=== PATIENT | female | born 1960 | race Caucasian/White ===

== ENCOUNTER → 2023-09-18 14:16 | Outpatient (REF) | payer BC, SELFPAY | LOC: RAD 14:16 | PROVIDERS: ATTENDING PHYSICIAN Family Medicine | DX: R10.12 Left upper quadrant pain (principal) | CPT/HCPCS: 71101; 76700 ==

== ENCOUNTER → 2023-10-06 10:38 | Outpatient (REF) | payer BC, SELFPAY | LOC: WDC 10:38 | PROVIDERS: ATTENDING PHYSICIAN Family Medicine | DX: Z12.31 Encounter for screening mammogram for malignant neoplasm of breast (principal) | CPT/HCPCS: 77063; 77067 ==

== ENCOUNTER → 2023-12-15 10:17 | Outpatient (REF) | payer BC, SELFPAY ==
[2023-12-15 11:18] LABS: % Basophils 0.7 % (0-2); % Eosinophils 0.7 % (0-6); % Immature Granulocytes 0.5 % (0-0.5); % Lymphocytes 22.3 % (20.5-51.1); % Monocytes 6.7 % (1.7-9.3); % Neutrophils 69.1 % (42.2-75.2); Absolute Basophils 0.1 10^3/uL (0-0.2); Absolute Eosinophils 0.1 10^3/uL (0-0.7); Absolute Lymphocytes 1.8 10^3/uL (1.2-3.4); Absolute Monocytes 0.5 10^3/uL (0.1-0.6); Absolute Neutrophils 5.6 10^3/uL (1.4-6.5); Hematocrit 39.4 % (37.0-47.0); Hemoglobin 13.8 g/dL (12.0-16.0); Mean Corpuscular Hgb 31.2 pg (27.0-31.0); Mean Corpuscular Volume 89.1 fL (81.0-99.0); Mean Platelet Volume 9.5 fL (7.4-10.4); Nucleated Red Blood Cells % 0 %; Platelet Count 284 10^3/uL (130-400); Red Blood Cell Count 4.42 10^6/uL (4.20-5.40); Red Cell Dist. Width 11.9 % (11.5-14.5)
[2023-12-15 11:55] LABS: ALT (SGPT) 19 U/L (0-35); AST (SGOT) 27 U/L (14-36); Albumin 4.7 g/dl (3.5-5.0); Alkaline Phosphatase 60 U/L (38-126); Blood Urea Nitrogen 14 mg/dl (7-17); Calcium 9.5 mg/dl (8.4-10.2); Carbon Dioxide 28 mmol/L (22-30); Chloride 101 mmol/L (98-107); Glucose 94 mg/dl (70-99); HDL Cholesterol 72 mg/dl; LDL Cholesterol, Calculated 85 mg/dl; Potassium 4.5 mmol/L (3.5-5.1); Sodium 136 mmol/L (135-145); Total Bilirubin 0.8 mg/dl (0.2-1.3); Total Cholesterol 176 mg/dl (50-199); Total Protein 6.7 g/dl (6.3-8.2); Triglyceride 97 mg/dl (10-149); Very Low Density Lipoprotein 19 mg/dl (0-30); eGFR > 60.00
[2023-12-15 12:11] LABS: Free T4 1.06 ng/dl (0.78-2.19)
[2023-12-15 12:25] LABS: TSH 3.41 uIU/ml (0.47-4.68)
== END ==
LOC: REG 10:17
PROVIDERS: ATTENDING PHYSICIAN Family Medicine
DX: Z00.00 Encounter for general adult medical examination without abnormal findings (principal); E03.9 Hypothyroidism, unspecified
CPT/HCPCS: 36415; 80053; 80061; 84439; 84443; 85025

== ENCOUNTER → 2024-02-09 16:35 | Outpatient (REF) | payer BC, SELFPAY | LOC: RAD 16:35 | PROVIDERS: ATTENDING PHYSICIAN Internal Medicine Rheumatology; FAMILY PHYSICIAN Family Medicine | DX: M47.812 Spondylosis without myelopathy or radiculopathy, cervical region (principal) | CPT/HCPCS: 72040 ==

== ENCOUNTER 2024-02-29 12:17 | Outpatient (RCR) | payer BC, SELFPAY | END 2024-02-29 23:59 | disposition home or self-care (01) | LOC: RPT 12:17 | PROVIDERS: ATTENDING PHYSICIAN Internal Medicine Rheumatology; FAMILY PHYSICIAN Family Medicine | DX: M25.552 Pain in left hip (principal); Z73.6 Limitation of activities due to disability; R26.2 Difficulty in walking, not elsewhere classified; M62.81 Muscle weakness (generalized); M79.605 Pain in left leg; M54.50 Low back pain, unspecified; R26.89 Other abnormalities of gait and mobility | CPT/HCPCS: 97110; 97162 ==

== ENCOUNTER 2024-03-30 13:02 | Outpatient (RCR) | payer BC, SELFPAY | END 2024-03-30 23:59 | disposition home or self-care (01) | LOC: RPT 13:02 | PROVIDERS: ATTENDING PHYSICIAN Internal Medicine Rheumatology; FAMILY PHYSICIAN Family Medicine | DX: M25.552 Pain in left hip (principal); Z73.6 Limitation of activities due to disability | CPT/HCPCS: 97110; 97112 ==

== ENCOUNTER 2024-04-11 13:12 | Outpatient (RCR) | payer BC, SELFPAY | END 2024-04-11 23:59 | disposition home or self-care (01) | LOC: RPT 13:12 | PROVIDERS: ATTENDING PHYSICIAN Internal Medicine Rheumatology; FAMILY PHYSICIAN Family Medicine | DX: M25.552 Pain in left hip (principal); Z73.6 Limitation of activities due to disability; R26.2 Difficulty in walking, not elsewhere classified; M62.81 Muscle weakness (generalized); M79.605 Pain in left leg | CPT/HCPCS: 97010; 97110 ==

== ENCOUNTER → 2024-05-31 08:51 | Outpatient (REF) | payer BC, SELFPAY ==
[2024-05-31 09:51] LABS: % Basophils 0.6 % (0-2); % Eosinophils 0.5 % (0-6); % Lymphocytes 24.2 % (20.5-51.1); % Monocytes 7.3 % (1.7-9.3); % Neutrophils 66.4 % (42.2-75.2); Absolute Basophils 0.1 10^3/uL (0-0.2); Absolute Eosinophils 0.1 10^3/uL (0-0.7); Absolute Immature Granulocytes 0.1 10^3/uL (0-0.05); Absolute Lymphocytes 2.5 10^3/uL (1.2-3.4); Absolute Monocytes 0.8 10^3/uL (0.1-0.6); Absolute Neutrophils 6.8 10^3/uL (1.4-6.5); Hematocrit 39.2 % (37.0-47.0); Hemoglobin 13.3 g/dL (12.0-16.0); Mean Corp Hgb Conc. 33.9 g/dL (33.0-37.0); Mean Corpuscular Hgb 31.9 pg (27.0-31.0); Mean Platelet Volume 9.7 fL (7.4-10.4); Nucleated Red Blood Cells % 0 %; Platelet Count 276 10^3/uL (130-400); Red Blood Cell Count 4.17 10^6/uL (4.20-5.40); Red Cell Dist. Width 12.7 % (11.5-14.5); White Blood Cell Count 10.3 10^3/uL (4.8-10.8)
[2024-05-31 10:31] LABS: ALT (SGPT) 17 U/L (0-35); AST (SGOT) 20 U/L (14-36); Albumin 4.5 g/dl (3.5-5.0); Alkaline Phosphatase 40 U/L (38-126); Blood Urea Nitrogen 24 mg/dl (7-17); Calcium 9.4 mg/dl (8.4-10.2); Carbon Dioxide 23 mmol/L (22-30); Chloride 103 mmol/L (98-107); Glucose 96 mg/dl (70-99); Potassium 4.5 mmol/L (3.5-5.1); Sodium 137 mmol/L (135-145); Total Bilirubin 0.6 mg/dl (0.2-1.3); Total Protein 6.6 g/dl (6.3-8.2); eGFR > 60.00
[2024-05-31 10:48] LABS: TSH Reflex To Free T4 6.15 uIU/ml (0.47-4.68)
[2024-05-31 11:16] LABS: Free T4 1.44 ng/dl (0.78-2.19)
== END ==
LOC: REG 08:51
PROVIDERS: ATTENDING PHYSICIAN Internal Medicine Rheumatology; FAMILY PHYSICIAN Family Medicine; REFERRING PHYSICIAN Internal Medicine Endocrinology, Diabetes & Metabolism
DX: M81.0 Age-related osteoporosis without current pathological fracture (principal); Z51.81 Encounter for therapeutic drug level monitoring; E03.9 Hypothyroidism, unspecified
CPT/HCPCS: 36415; 80053; 84439; 84443; 85025

== ENCOUNTER → 2024-09-05 15:52 | Outpatient (REF) | payer BC, SELFPAY ==
[2024-09-05 17:25] LABS: Free T4 1.58 ng/dl (0.78-2.19)
[2024-09-05 17:39] LABS: TSH 0.25 uIU/ml (0.47-4.68)
== END ==
LOC: REG 15:52
PROVIDERS: ATTENDING PHYSICIAN Internal Medicine Endocrinology, Diabetes & Metabolism; FAMILY PHYSICIAN Family Medicine
DX: E03.9 Hypothyroidism, unspecified (principal)
CPT/HCPCS: 36415; 84439; 84443

== ENCOUNTER → 2024-10-06 11:58 | Outpatient (REF) | payer BC, SELFPAY | LOC: WDC 11:58 | PROVIDERS: ATTENDING PHYSICIAN Nurse Practitioner Adult Health; FAMILY PHYSICIAN Family Medicine | DX: Z12.31 Encounter for screening mammogram for malignant neoplasm of breast (principal) | CPT/HCPCS: 77063; 77067 ==

== ENCOUNTER → 2025-01-05 10:06 | Outpatient (REF) | payer BC, SELFPAY ==
[2025-01-05 12:29] LABS: Hematocrit 38.7 % (37.0-47.0); Hemoglobin 12.9 g/dL (12.0-16.0); Mean Corp Hgb Conc. 33.3 g/dL (33.0-37.0); Mean Corpuscular Volume 91.5 fL (81.0-99.0); Nucleated Red Blood Cells % 0 %; Platelet Count 283 10^3/uL (130-400); Red Cell Dist. Width 13.2 % (11.5-14.5)
[2025-01-05 13:10] LABS: ALT (SGPT) 13 U/L (0-35); AST (SGOT) 20 U/L (14-36); Albumin 4.9 g/dl (3.5-5.0); Alkaline Phosphatase 52 U/L (38-126); Blood Urea Nitrogen 9 mg/dl (7-17); Calcium 9.4 mg/dl (8.4-10.2); Carbon Dioxide 26 mmol/L (22-30); Chloride 104 mmol/L (98-107); Glucose 100 mg/dl (70-99); HDL Cholesterol 70 mg/dl; LDL Cholesterol, Calculated 74 mg/dl; Potassium 5.0 mmol/L (3.5-5.1); Sodium 138 mmol/L (135-145); Total Protein 7.0 g/dl (6.3-8.2); Very Low Density Lipoprotein 21 mg/dl (0-30); eGFR > 60.00
[2025-01-05 13:22] LABS: TSH 3.49 uIU/ml (0.47-4.68)
== END ==
LOC: REG 10:06
PROVIDERS: ATTENDING PHYSICIAN Family Medicine
DX: Z00.00 Encounter for general adult medical examination without abnormal findings (principal); E03.9 Hypothyroidism, unspecified; E78.2 Mixed hyperlipidemia
CPT/HCPCS: 36415; 80053; 80061; 84439; 84443; 85025

== ENCOUNTER 2025-01-10 19:41 | Day surgery (SDC) | payer BC, SELFPAY ==
[2025-01-10] VITALS (11 sets, daily range): BP systolic 108–146; BP diastolic 56–83; BMI 28.2
[2025-01-10 11:22] LABS: Hematocrit 39.4 % (37.0-47.0); Hemoglobin 13.2 g/dL (12.0-16.0); Mean Corp Hgb Conc. 33.5 g/dL (33.0-37.0); Mean Corpuscular Volume 90.2 fL (81.0-99.0); Nucleated Red Blood Cells % 0 %; Platelet Count 246 10^3/uL (130-400); Red Cell Dist. Width 12.8 % (11.5-14.5)
[2025-01-10 11:46] LABS: ALT (SGPT) 12 U/L (0-35); AST (SGOT) 19 U/L (14-36); Albumin 4.9 g/dl (3.5-5.0); Alkaline Phosphatase 52 U/L (38-126); Blood Urea Nitrogen 9 mg/dl (7-17); Calcium 9.7 mg/dl (8.4-10.2); Carbon Dioxide 25 mmol/L (22-30); Chloride 104 mmol/L (98-107); Glucose 103 mg/dl (70-99); Lipase 148 U/L (23-300); Potassium 4.8 mmol/L (3.5-5.1); Sodium 137 mmol/L (135-145); Total Protein 7.2 g/dl (6.3-8.2); eGFR > 60.00
[2025-01-10 14:19] LABS: Urine Character Clear (Clear)
[2025-01-10 14:27] LABS: Urine Red Blood Cell 0-2 /HPF (0-2)
[2025-01-10] MEDS: TORADOL 15 MG IV (14:37)
--- NOTE | 2025-01-10 14:43 | ED.GENMED ---
History of Present Illness
General
Chief Complaint: Abdominal Pain
Source: patient
Exam Limitations: none
Time Seen by Provider: 01/10/25 13:44
Nursing documentation reviewed up to this point in time: agreed with
History of Present Illness
History of Present Illness:
The patient is a 64-year-old female with history of hyperlipidemia, hypothyroid who presents to the emergency department for evaluation of abdominal pain. Patient states she has been experiencing postprandial upper abdominal pain intermittently for
a while now however symptoms seem to worsen acutely this weekend. She states that on Thursday after eating breakfast she had very severe upper abdominal pain and describes it as a tight band around her upper abdomen as well as a significant
bloating feeling. Symptoms did lessen however this persisted for most the day. Symptoms were improved both Thursday and yesterday however after breakfast this morning she had acute onset pain once again in her upper abdomen. This is associated with
diaphoresis and nausea however has not had any vomiting. Patient denies any known fevers. No associated urinary discomfort. She denies any chest pain, shortness of breath, or lightheadedness.
By my assessment�patient states symptoms have persisted although are not as severe as they were earlier.
Of note�patient states she was experiencing similar symptoms years ago where she had a negative workup outpatient.
No history of abdominal surgeries.
Past History
Past History
ED Past Medical History: GERD, Hypercholesterolemia and Hypothyroidism
ED Past Surgical History: Gynecological; Negative Cardiac or Cholecystectomy
Social History
Tobacco: Non-smoker
Alcohol: None
Drug: None
Personal:
Living: with family
Employment: Employed
Family History
Family History: Hypertension
Review of Systems
Review of Systems
Allergies reviewed?: Yes
All Other Systems: ROS reviewed and negative except as documented in HPI and ROS
Phy Exam
Physical Exam
Physical Exam:
Vitals: Hypertensive, otherwise vital signs stable. Afebrile
General: Patient is well appearing, nontoxic appearing.
Skin: Warm and dry, no rashes or lesions
Head: Normocephalic, atraumatic
Eyes: Sclera nonicteric.
Throat: Protecting airway
Neck: Normal ROM, no cervical spine tenderness, no meningismus
Cardiac: Regular rate and rhythm, no murmurs.
Pulm: Normal respiratory effort, no wheezes, rales, rhonchi heard on exam
Abdomen: Abdomen soft. Moderate tenderness in epigastric/right upper quadrant with positive Hall sign. No lower abdominal tenderness. No rebound tenderness or guarding
Extremities: No evidence of cyanosis or edema
Neuro: AAOx3. Grossly intact.
Psychiatric: Normal affect.
Course
Orders/Labs/Results
Orders:
Orders
01/10/25 11:15
Complete Blood Count/With Diff Urgent
Comprehensive Metabolic Panel Urgent
Lipase Urgent
01/10/25 14:07
Urinalysis Reflex To Culture Urgent
Date Specimen was Collected: 01/10/25
Time Specimen was Collected: 14:00
Urine Microscopic Reflex Cult Urgent
Urine Culture Urgent
KIM Source: U
Specimen Description:
Date Specimen was Collected: 01/10/25
Time Specimen was Collected: 14:00
01/10/25 14:15
Ketorolac [Toradol] 15 mg IV NOW STA
US Abdomen Complete/Upper Urgent
Comment:
Reason For Exam: Postprandial upper abdominal pain
01/10/25 14:16
Electrocardiogram (*1) Urgent
Reason for Study: Abdominal Pain
EKG- Treatment ONCE
01/10/25 14:36
Troponin I Urgent
01/10/25 Dinner
Clear Liquid
01/10/25 17:29
Acetaminophen [Tylenol] 650 mg PO NOW STA
01/10/25 18:26
Admit Patient As Directed
Co-Sign Provider:
Level of Care: Inpatient admission
Assign to:: Medical/Surgical
Physician / Group: Marilou /BRIAN
Diagnosis: Cholecystitis
Reason for Hospitalization: Cholecystitis
Expected length of stay greater than two midnights?: Yes
ELOS- Estimated Length of Stay in days: 3
I certify the patient meets the requirements for IP care: Yes
Code Status As Directed
Resuscitation Status: Full Code
HYDROmorphone [Dilaudid] 0.5 mg IV Q2HPRN PRN
Ondansetron Injectable [Zofran] 4 mg IV Q6HPRN PRN
Activity As Directed
Activity Level: Ambulate
Intake/ Output As Directed
Frequency: Per unit guidelines
Pneumatic Compression Sleeves As Directed
Type: Knee high
Vital Signs As Directed
Frequency: Per unit guidelines
PRN Pain Medication Management As Directed
May give lesser potent ordered pain med per pt: Yes
preference::
Protocol:: Medication orders for pain may be administered in a
manner that supports deferring to patient preference
when the pt is:
- Requesting an ordered lesser potent pain medication.
Least to most potent pain medications are defined
as: acetaminophen < NSAID < tramadol < opioids
(morphine, oxycodone, hydromorphone).
- Requesting a lesser dose of the same medication IF
ORDERED.
- Requesting a less intrusive route of administration
if both routes are prescribed by the provider (PO <
IV).
DX Deep Vein Thrombosis Video Routine
01/10/25 18:27
O2 Therapy [RESP] Routine
Titrate/Wean O2 to maintain O2 sat greater than (%): 90
Rx Incentive Spirometry [RESP] Routine
Frequency: q1h while awake
# of times per hour: 10
01/10/25 18:30
Normosol (Mult Electrolytes) [Normosol-R/Plasmalyte-A] 1,000 ml IV 100 mls/hr
01/10/25 20:00
Acetaminophen [Tylenol] 650 mg PO Q4HWA
Piperacillin/Tazo 3.375 Gram [Zosyn] 3.375 gram in 50 ml IV Q6H
01/11/25 Breakfast
NPO
Allow oral meds: Yes
Allow clear liquids: No
01/11/25 08:00
Pantoprazole [Protonix IV] 40 mg IV DAILY
01/11/25 18:00
Enoxaparin Sodium [Lovenox] 40 mg SC QPM
Abnormal Lab Results
01/10/25 01/10/25
11:15 14:07
Absolute Neuts (auto) 7.6 H 10^3/uL
(1.4-6.5)
Neutrophils % 76.9 H %
(42.2-75.2)
Lymphocytes % 14.9 L %
(20.5-51.1)
Glucose 103 H mg/dl
(70-99)
Leukocyte Esterase Rfl 1+ A
(Negative)
Urine Bacteria (Reflex) Few A
(Negative)
Urine Albumin (Reflex) 1+ A
(Neg - Trace)
01/10/25 11:15
01/10/25 11:15
Vital Signs
Initial and Last Documented VS:
Initial Vital Signs
Temp Pulse Resp BP Pulse Ox
98 F 73 16 142/75 98
01/10/25 11:07 01/10/25 11:07 01/10/25 11:07 01/10/25 11:07 01/10/25 11:07
Last Documented Vital Signs
Temp Pulse Resp BP Pulse Ox
98 F 73 14 117/67 99
01/10/25 11:07 01/10/25 18:45 01/10/25 18:45 01/10/25 18:00 01/10/25 18:45
MDM/Problems Addressed
Differential Diagnosis Includes:
Not limited to: Cholelithiasis, acute cholecystitis, choledocholithiasis, cholangitis,, GERD, pancreatitis, acute coronary syndrome etc.
MDM/Problems Addressed:
64-year-old female with intermittent postprandial upper abdominal pain associated with nausea with acute worsening this weekend. No fevers or vomiting. Symptoms most pronounced after eating. No associated chest pain, shortness of breath, or
lightheadedness. Mildly hypertensive on arrival, otherwise vital signs stable. On exam�patient well-appearing, in no apparent distress. She is nontoxic-appearing. Abdomen soft with tenderness noted to epigastric/right upper quadrant with
positive Hall sign. No focal tenderness in right lower quadrant at McBurney's point. Cardio/pulmonary assessment unremarkable.
Differential broad. Symptoms possibly reflective of biliary colic vs acute cholecystitis vs pancreatitis vs GERD. ED plan, labs, abdominal ultrasound. Given location of pain and age�will rule out cardiac etiology with troponin/EKG. Will give
Toradol, IV fluids.
Update: Basic labs doubt any clinically significant abnormalities. Urine shows no evidence of infection. EKG reveals normal sinus rhythm without acute ischemic changes and troponin is undetectable. Abdominal ultrasound shows gallbladder with
biliary sludge and 1 small gallstone. No evidence of wall thickening or pericholecystic fluid. There is a possible ductal distention noted however lab work not reflective of obstructive process. Symptoms seem most consistent with symptomatic
cholelithiasis, less likely choledocholithiasis.
While no evidence of current infection�given persistence/frequent episodes of symptoms�did discuss case with general surgery who is able to perform cholecystectomy tomorrow. Discussed with patient regarding admission for CCY tomorrow vs discharge
with outpatient general surgery follow-up. Patient prefers admission for surgery.
General surgery, Dr. Zamarripa down to evaluate patient at bedside who will admit to their service. Patient in stable condition
Chronic conditions affecting care:
N/A
Acute Exacerbation and/or Progression of Chronic Illness:
N/A
*Radiology
Radiology exam reviewed: radiology read reviewed
*Pulse Oximetry
SaO2: 99
Oxygen Mode of Delivery: Room air
Patient hypoxic: no
*EKG
Interpreted by ED Provider?: Yes
EKG Intrepretation Date: 01/10/25
Interpretation: normal
Comparison EKG: no changes
Heart Rate: 67
Rate: normal
Rhythm: sinus
Paulding: normal axis
Interval: normal interval
QRS Pattern: normal QRS
Ischemia: no ischemia
*Segment Block Layer Interpretation
Rate: Segment Block Layer- N/A
*Critical Care Note
Total Time (30-74mins, 75-104mins- exclusive of procedures): Not Applicable
Patient Management
Discussion with other providers: Veterinary Parasitologist (Case discussed with general surgery)
Escalation/DeEscalation of care consider admission/obs:
Admit to general surgery service for cholecystectomy tomorrow
ED Attending Note
-
Portions of this chart may have been created with voice recognition software.� Occasional wrong word or��sound alike� substitutions may have occurred due to the inherent limitations of voice recognition software.
Discharge Plan
Departure
Patient Disposition: Admit
Date of Disposition: 01/10/25
Time of Disposition: 17:29
Admit to doctor: Dr. Zamarripa
Presentation/result/management discussed w/ accepting MD/DO: General Surgery
Discharge Problem:
Symptomatic cholelithiasis
Interventions
Interventions:
*Risk Screen - Suicide Last Done: 01/10/25 14:00
*General Assessment Last Done: 01/10/25 14:00
*Neglect/Abuse Screening Last Done: 01/10/25 14:00
*ED COVID-19 Vaccine History Last Done: 01/10/25 14:00
DF-Scdmic-Nacxphawdt Assessment Last Done: 01/10/25 14:00
[2025-01-10 15:25] LABS: Troponin I < 0.012 ng/ml
[2025-01-10] MEDS: TYLENOL 650 MG PO ×2 (17:33→23:11)
--- NOTE | 2025-01-10 18:21 | CON.GS ---
Medical History
-
Chief Complaint: Epigastric and RUQ abdominal pain
History of Present Illness:
Patient is a 64 yo F with a PMH of GERD, HLD, and hypothyroidism who presents with persistent epigastric and RUQ abdominal pain. Ms. Bhakat states that she had an attack of abdominal discomfort this past Thursday. Symptoms persisted throughout
the day and ultimately improved. She has limited her oral intake. This morning she had eggs prompting her recurrence of her symptoms. Pain more severe prompting presentation to the ER. Associated nausea, but no vomiting. No fevers or chills.
She denies any jaundice, pale stools, or tea colored urine. She states that she has probably had attacks over the past several months.
Past Medical History
Past Medical History: GERD, Hypercholesterolemia and Hypothyroidism
Past Surgical History: None
Social History
Tobacco: Non-Smoker
Alcohol: Occasional
Drug: None
Family History
Family History: Reviewed & Noncontributory
Allergies / Home Medications
Allergy/AdvReac Type Severity Reaction Status Date / Time
No Known Allergies Allergy Verified 02/28/21 16:25
�Medication �Instructions �Recorded �Confirmed �Type
Fosamax 1 tab PO WEEKLY 02/28/21 02/28/21 History
ibuprofen 600 mg tablet 600 mg PO Q6HPRN PRN pain #20 tabs 02/28/21 Rx
levothyroxine 88 mcg tablet 88 mcg PO DAILY AT 0700 02/28/21 02/28/21 History
omeprazole magnesium 20 mg 20 mg PO DAILY ##20 02/28/21 Rx
tablet,delayed release (Prilosec
OTC)
Review of Systems
-
A 10 point review of systems was completed, and was negative except as per HPI.
Physical Exam
Vital Signs
Temp Pulse Resp BP Pulse Ox
98 F 73 16 117/67 99
01/10/25 11:07 01/10/25 18:00 01/10/25 18:00 01/10/25 18:00 01/10/25 18:00
01/09/25 01/10/25 01/11/25
06:59 06:59 06:59
Actual Weight 69 kg
Lab Results
01/10/25 11:15
01/10/25 11:15
WBC 9.9 10^3/uL (4.8-10.8) 01/10/25 11:15
Hgb 13.2 g/dL (12.0-16.0) 01/10/25 11:15
Hct 39.4 % (37.0-47.0) 01/10/25 11:15
Plt Count 246 10^3/uL (130-400) 01/10/25 11:15
Abs Immat Gran (auto) 0.0 10^3/uL (0-0.05) 01/10/25 11:15
Neutrophils % 76.9 % (42.2-75.2) H 01/10/25 11:15
Physical Exam
General: Well Developed, Well Nourished and No Apparent Distress
HEENT: Normocephalic and Anicteric
Respiratory: Non Labored Respirations
Cardiac: Regular Rhythm
GI: Soft, Non Distended, Tender (Mild epigastric and RUQ, negative Hall's sign) and Other (No diffuse peritonitis)
Skin: Warm and Dry
Neuro: Nonfocal/Grossly Intact
Data Reviewed
-
Ultrasound: Image Personally Visualized and interpreted and Report Reviewed by me
Labs: Labs Reviewed by me
Assessment / Plan
-
Patient is a 64 yo F p/w symptomatic cholelithiasis
The natural history and pathophysiology of biliary stone disease was discussed. Anatomy was reviewed. Workup thus far including ultrasound and labs were reviewed. Options for management including medical management with a low-fat diet and attempt
at outpatient cholecystectomy versus cholecystectomy during this admission were considered and discussed. Given her persistent symptoms as well as some concern for possible choledocholithiasis given her mildly elevated CBD recommend surgical
management during this presentation.
Plan for a laparoscopic cholecystectomy with cholangiogram. The procedure itself, as well as the risks, benefits, and alternatives was discussed. Specifically, we discussed the risk of bleeding, infection, injury to surrounding structures (bowel,
bile ducts), CBD injury, need for open procedure. Typical postprocedure recovery including activity restrictions and the 10 to 20% risk of fluctuations in GI function were discussed. All questions answered.
-- Admit to surgery
-- Added to OR schedule for lap nat with IOC tomorrow
-- Clears, NPO PM
-- Abx: Zosyn
-- Pain control: Tylenol and IV Dilaudid PRN
[2025-01-10] MEDS: ZOSYN 50 IV (20:32)
[2025-01-10] MEDS: NORMOSOL-R/PLASMALYTE-A 1000 IV (20:42)
--- NOTE | 2025-01-10 22:25 | PTCARENOTE ---
Pt arrived to floor via stretcher from the ED. Pt able to ambulate from stretcher into room independently. Pt AAOx3. Reports ABD pain 3/10, and tender to palpation. Pt instructed on pain medication administration. Pt reports understanding and denies
need at this time. Right AC int infusing Normosol @100ml/hr as ordered. CHG bath provided. pt positioned in bed per comfort. Warm blankets provided. Pt aware of NPO @ MN status. No issues to report at this time. Call garrido in reach. Will continue to
monitor.
[2025-01-11] VITALS (15 sets, daily range): BP systolic 107–130; BP diastolic 54–75
[2025-01-11] MEDS: ZOSYN 50 IV ×2 (01:15→08:24)
[2025-01-11] MEDS: TYLENOL PO ×2 (04:54→12:09)
[2025-01-11] MEDS: NORMOSOL-R/PLASMALYTE-A 1000 IV (06:13)
--- NOTE | 2025-01-11 06:19 | PTCARENOTE ---
Pt slept well overnight. Denies any complaints of pain or need for pain medication overnight. IVF infusing as ordered. Vital signs stable. Pt NPO for OR today. Will continue to monitor.
[2025-01-11] MEDS: NSS (PRESERVATIVE FREE) 10 ML IV (08:24)
[2025-01-11] MEDS: PROTONIX IV 40 MG IV (08:24)
[2025-01-11] MEDS: TYLENOL 650 MG PO ×4 (08:25→23:07)
[2025-01-11 09:11] LABS: Hematocrit 34.2 % (37.0-47.0); Hemoglobin 11.7 g/dL (12.0-16.0); Mean Corp Hgb Conc. 34.2 g/dL (33.0-37.0); Mean Corpuscular Volume 88.8 fL (81.0-99.0); Platelet Count 229 10^3/uL (130-400); Red Cell Dist. Width 12.7 % (11.5-14.5)
[2025-01-11 10:00] LABS: ALT (SGPT) 11 U/L (0-35); AST (SGOT) 17 U/L (14-36); Albumin 4.1 g/dl (3.5-5.0); Alkaline Phosphatase 58 U/L (38-126); Blood Urea Nitrogen 8 mg/dl (7-17); Calcium 8.5 mg/dl (8.4-10.2); Carbon Dioxide 21 mmol/L (22-30); Chloride 106 mmol/L (98-107); Estimated Creatinine Clearance 69 ml/min; Glucose 94 mg/dl (70-99); Potassium 3.9 mmol/L (3.5-5.1); Sodium 136 mmol/L (135-145); Total Protein 6.0 g/dl (6.3-8.2); eGFR > 60.00
--- NOTE | 2025-01-11 10:35 | W.SUR.PREOP ---
Pre-Operative Surgical Note
-
I have examined this patient prior to the performance of the scheduled procedure.
The patient's condition is unchanged from the time of the current History and
Physical and the patient is able to undergo the scheduled procedure.
--- NOTE | 2025-01-11 12:08 | PTCARENOTE ---
Pt sent to OR.
--- NOTE | 2025-01-11 12:25 | CM ---
Patient seen bedside.
Plan Cholecystectomy today.
IA completed.
patient lives alone in a 2 story home.
Independent prior to admission.
No hx VN, denies home care needs.
Advanced directive provided.
Friend will transport.
PCP: Dr Chang
Pharmacy: [facility]
Plan: home no needs anticipated.
[2025-01-11] MEDS: ZOSYN IV (13:11)
--- NOTE | 2025-01-11 14:10 | W.IMMPOSTOP ---
Surgical Immed Post Op Note
-
Primary Surgeon: Marilou
Assisting Surgeon: GEREMIAS Velasquez
Pre-op Diagnosis: Symptomatic cholelithiasis
Post-op Diagnosis: Symptomatic cholelithiasis
Procedure Performed: Laparoscopic cholecystectomy with IOC
Anesthesia Type: General
Specimen / Cultures:
1. Gallbladder
Estimated Blood Loss: 3 cc
Complications: None
Operative Findings:
1. Normal appearing GB, sludge and small debris
2. Critical view of safety, IOC negative
3. Duct and artery taken with clips
[2025-01-11] MEDS: DILAUDID 0.25 MG IV (15:09)
[2025-01-11] MEDS: DILAUDID 0.5 MG IV (15:23)
[2025-01-11] MEDS: LOVENOX 40 MG SC (17:01)
[2025-01-11] MEDS: TUMS CHEWABLE TABLET 200 MG PO (23:07)
[2025-01-12] MEDS: TYLENOL PO (05:20)
--- NOTE | 2025-01-12 08:29 | W.PN.GS2 ---
Today's Communication / Plan
-
-- DC today
Assessment / Plan
-
Patient is a 64 yo F POD#1 s/p laparoscopic cholecystectomy with cholangiogram
AVSS
Recovering well. No postoperative concerns. Plan for discharge today.
-- LFD
-- HLIV
-- Pain contyrol: Tylenol, Toradol, Tramadol
-- Abx: none further needed
-- Home meds
-- DVT: Lovenox
-- GI: home PPI
-- DC today
Subjective Data
-
Date of Service: January 12, 2025
No complaints. Upper abdominal soreness well-controlled. No nausea or vomiting. No fevers. Ambulating. Voiding.
Objective Data
-
Intake and Output
01/11/25 01/12/25 01/13/25
06:59 06:59 06:59
Intake Total 1730 / 1730 330 / 330
Balance 1730 / 1730 330 / 330
Intake:
Oral fluids 480 / 480 30 / 30
IV fluids (Total) 1200 / 1200 300 / 300
Normosol 300 / 300
IV piggybacks 50 / 50
Other:
Number of approximated MODERATE 1 2
amounts of urine
Vital Signs
Temp Pulse Resp BP Pulse Ox
98.1 F 89 16 117/57 96
01/11/25 23:00 01/11/25 23:00 01/11/25 23:00 01/11/25 23:00 01/11/25 23:00
Lab Results
01/11/25 08:27
01/11/25 08:27
Calcium 8.5 mg/dl (8.4-10.2) 01/11/25 08:27
Total Bilirubin 0.7 mg/dl (0.2-1.3) 01/11/25 08:27
AST 17 U/L (14-36) 01/11/25 08:27
ALT 11 U/L (0-35) 01/11/25 08:27
Alkaline Phosphatase 58 U/L (38-126) 01/11/25 08:27
Total Protein 6.0 g/dl (6.3-8.2) L 01/11/25 08:27
Albumin 4.1 g/dl (3.5-5.0) 01/11/25 08:27
Physical Exam
-
Gen: NAD
Abd: soft, mild tenderness, ND, non-peritoneal, incisions c/d/i - no erythema, ecchymosis, or drainage
Patient has a georges catheter: No
Patient has a central line: No
--- NOTE | 2025-01-12 08:34 | W.DS.TRANS ---
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
-
Discharge Instructions:
Discharge Diagnosis/Procedures Laparoscopic cholecystectomy with cholangiogram
Diet Low Fat,Regular
Additional Diets If issues with bloating or diarrhea follow a low
-fat diet
Activity No strenuous activity
Additional Activity No heavy lifting (>20 lbs) or strenuous
activities for 2 to 3 weeks postoperatively
Driving Restrictions No driving if too sore or taking narcotics
Bathing Restrictions OK to Shower
Wound Care Keep incisions clean and dry. Glue will flake
off in 2 to 3 weeks. Stitches will dissolve.
Use ice to the abdomen to reduce any bruising or
swelling.
Instructions:
Stand-Alone Forms:
Changes to Home Medications: Yes
Discharge Medications:
DC Medications w/original date entered in [employer]
Fosamax 1 tab PO WEEKLY [facility] 02/28/21
ibuprofen 600 mg tablet 600 mg PO Q6HPRN PRN pain #20 tabs 02/28/21
levothyroxine 88 mcg tablet 88 mcg PO DAILY AT 0700 Thyroid 02/28/21
acetaminophen 325 mg tablet 650 mg (2 x 325 mg) PO Q4HPRN PRN mild pain #1 tab 01/11/25
omeprazole magnesium 20 mg tablet,delayed release (Prilosec OTC) 20 mg PO DAILY Gastrointestinal Issue 01/11/25
tramadol 50 mg tablet 50 mg PO Q6HPRN PRN severe pain/breakthrough pain #7 tabs 01/11/25
Home Medication Changes
Pending Results: No
--- NOTE | 2025-01-12 09:14 | CM ---
MD entered order for discharge.
Spoke with patient she said she is ready.
She said her friend Destinee will drive her home.
Offered VN she declined need.
PLAN Home no needs
[2025-01-12] MEDS: PROTONIX IV 40 MG IV (09:15)
[2025-01-12] MEDS: NSS (PRESERVATIVE FREE) 10 ML IV (09:15)
[2025-01-12] MEDS: TYLENOL 650 MG PO (09:15)
[2025-01-12 09:21] VITALS: BP 124/69
[2025-01-12 19:06] LABS: Hepatitis C Antibody Negative (Negative)
== END 2025-01-12 12:13 | disposition home or self-care (01) ==
LOC: PACU 19:41
PROVIDERS: Physician Assistant; Student in an Organized Health Care Education/Training Program; ATTENDING PHYSICIAN Surgery; EMERGENCY PHYSICIAN Emergency Medicine; FAMILY PHYSICIAN Family Medicine
DX: K81.1 Chronic cholecystitis (principal)
CPT/HCPCS: 47563; 74300; 76000; 76700; 80053; 81003; 81015; 83690; 84484; 85025; 85027; 86803; 87086; 88304; 93005; 96374; 99285; A4300

== ENCOUNTER → 2025-04-12 14:52 | Outpatient (REF) | payer BC, SELFPAY ==
[2025-04-19 02:51] LABS: HPV, High Risk Not Detected; HPV, High Risk Source Cervical
== END ==
LOC: CPAP 14:52
PROVIDERS: ATTENDING PHYSICIAN Nurse Practitioner Adult Health
DX: Z01.419 Encounter for gynecological examination (general) (routine) without abnormal findings (principal)
CPT/HCPCS: 87624; G0123